=== PATIENT | male | born 1955 | race Caucasian/White ===

== ENCOUNTER 2016-03-14 19:30 | Inpatient (IN) | payer OTHER, MEDICAID ==
[2016-03-14] MEDS ORDERED: NS 1,000 ML BAG *FOR SEPSIS ORDER SET ONLY IV ONE (20:37)
--- NOTE | 2016-03-14 20:39 | UCPHY ---
H & P Patient Type: Established Chief Complaint Nursing Narrative: red rash bilateral legs x 20 hours. URI no chills/fever/Body aches. Here with Caregiver. 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 He has also had a sore throat and fever for the last week. A dry cough. He denies shortness of breath. He states that his sore throat is improving. The last 2 days he has developed a red petechial rash to both lower legs, swelling and warmth. He denies any history of cardiac or pulmonary disease. He denies any history of renal or liver disease. REVIEW OF SYSTEMS: Constitutional: See HPI EENTM: See HPI Respiratory: denies: cough, shortness of breath Cardiac: denies: chest pain, irregular heart rate, lightheadedness, palpitations Gastrointestinal/Abdominal: denies: abdominal pain, diarrhea, nausea, vomiting, blood streaked stools Genitourinary: denies: dysuria, frequency, hematuria, pain Musculoskeletal: denies: joint pain, muscle pain Skin: See HPI Neurological: denies: headache, numbness, paresthesia, tingling, dizziness, weakness Hematologic/Lymphatic: denies: blood clots, easy bleeding, easy bruising Immunologic/allergic: denies: HIV/AIDS, transplant EXAM: GENERAL: Well-appearing, well-nourished and in no acute distress. HEAD: Atraumatic, normocephalic. EYES: Pupils equal round and reactive to light, extraocular movements intact, sclera anicteric, conjunctiva are normal. ENT: TMs normal, nares patent, oropharynx clear without exudates. Moist mucous membranes. NECK: Normal range of motion, supple without lymphadenopathy or JVD. LUNGS: Breath sounds clear to auscultation bilaterally and equal. No wheezes rales or rhonchi. HEART: Regular rate and rhythm without murmurs, rubs or gallops. ABDOMEN: Soft, nontender, normoactive bowel sounds. No guarding, no rebound. No masses appreciated. BACK: No CVA tenderness, no spinal tenderness, step-offs or deformities EXTREMITIES: Bilateral lower extremity edema with petechial a vasculitis type rash, warm to the touch. NEUROLOGICAL: Cranial nerves II through XII grossly intact. Normal speech, normal gait. 5/5 strength, normal movement in all extremities, normal sensation PSYCH: Normal mood, normal affect. SKIN: Warm, dry, normal turgor, no visible rashes or lesions. Source: Patient - Personal History Current Tetanus/Diphtheria Vaccine: Unsure Current Tetanus Diphtheria and Acellular Pertussis (TDAP): Unsure - Medical/Surgical History Hx Asthma: No Hx Chronic Respiratory Disease: No Hx Diabetes: Yes Hx Cardiac Disease: No Hx Renal Disease: No Hx Cirrhosis: No Hx Alcoholism: No Hx HIV/AIDS: No Hx Splenectomy or Spleen Trauma: No Other PMH: medical- Schizoaffective Disorder, Asbergers. surgical- denies - Family History Significant Family History: No pertinent family hx - Social History Smoking Status: Never smoked Alcohol Use: None Drug Use: None Constitutional: Initial Vital Signs Temperature (C) 38.3 C 03/14/16 19:56 Heart Rate 114 H 03/14/16 19:56 Respiratory Rate 20 03/14/16 19:56 Blood Pressure 116/73 03/14/16 19:56 O2 Sat (%) 93 03/14/16 19:56 O2 Delivery Mode Room Air Allergies/Adverse Reactions: No Known Allergies Allergy (Verified 03/14/16 19:55) Home Medications: Medication Instructions Recorded Benztropine Mesylate 0.5 mg PO BID 03/14/16 Divalproex ER [Depakote ER 500 MG 1,000 mg PO HS 03/14/16 (*)] Finasteride [Proscar 5 MG (*)] 5 mg PO DAILY 03/14/16 Tamsulosin HCl [Flomax 0.4 MG (*)] 0.8 mg PO DAILY 03/14/16 lamoTRIgine [LamICTAL 100 MG (*)] 75 mg PO DAILY 03/14/16 metFORMIN HCL [Glucophage 500 mg 500 mg PO BIDMEAL 03/14/16 (*)] Chlorhexidine Gluconate 15 ml MM BID 03/15/16 Clinpro 5000 1.1% 1 mini TP BID 03/15/16 risperiDONE [Risperdal 1mg (*)] 5 mg PO HS 03/15/16 Medical Decision Making - Diagnostics Imaging: X-ray: chest x-ray was obtained. I viewed the images myself on the PACS system. My interpretation of the images is: Left lower lobe infiltrate. The radiologist interpretation is left lower lobe infiltrate and bilateral effusions. ED Course/Re-evaluation: The patient meets sepsis criteria. Will initiate lab work on fluid bolus. His legs appear to be more petechial vasculitis than the cellulitis. Although there is some edema . Suspect his throat was the primary source. It currently is relatively asymptomatic. 10:00 p.m. we discussed the x-ray results. I discussed the case with Dr. Nixon Fleming who will admit to the hospital service. We will treat for community- acquired pneumonia. The patient does meet sepsis criteria but not severe sepsis. He did receive a fluid bolus. He is not hypotensive. His heart rate did improve. I have started antibiotics. He does not require 2nd lactate. I think that the petechiae in his lower extremities are secondary to the sepsis. He is beginning to develop some petechiae in the dependent areas of his arms well. Differential Diagnosis: Partial list of the Differential diagnosis considered include but were not limited to; sepsis, vasculitis, pneumonia, urinary tract infection and although unlikely based on the history and physical exam, I also considered endocarditis, meningitis, appendicitis, cellulitis. I discussed these differential diagnoses and the plan with the patient as well as the usual and expected course. The patient understands that the diagnosis is provisional and that in medicine we are not always correct and that further workup is often warranted. Usual and customary warnings were given. All of the patient's questions were answered. The patient was instructed to return to the emergency department should the symptoms at all worsen or return, otherwise to followup with the physician as we discussed. Critical Care Time: I spent a total of 35 minutes of critical care time in obtaining history, performing a physical exam, bedside monitoring of interventions, collecting and interpreting tests and discussion with consultants but not including time spent performing procedures. - Data Points Laboratory Results: Laboratory Results 03/14/16 20:49 03/14/16 20:49 Medications Given: Discontinued Medications Acetaminophen (Tylenol) 1,000 mg PO EDNOW ONE Stop: 03/14/16 20:53 Last Admin: 03/14/16 21:04 Dose: 1,000 mg Azithromycin 500 mg/ Dextrose 255 mls @ 255 mls/hr IV DAILY ORALIA PRN Reason: Protocol Stop: 04/13/16 22:29 Last Admin: 03/14/16 22:27 Dose: 255 mls Ceftriaxone Sodium/Dextrose (Rocephin 1 Gm (Premix)) 50 mls @ 100 mls/hr IV DAILY ORALIA PRN Reason: Protocol Stop: 04/13/16 22:29 Last Admin: 03/14/16 22:10 Dose: 50 mls Ceftriaxone Sodium/Dextrose (Rocephin 1 Gm (Premix)) 50 mls @ 100 mls/hr IV DAILY ORALIA PRN Reason: Protocol Stop: 04/14/16 08:59 Last Admin: 03/15/16 07:32 Dose: 50 mls Sodium Chloride (Ns) 1,000 mls @ 150 mls/hr IV CONT ORALIA Stop: 09/10/16 22:59 Last Admin: 03/15/16 00:53 Dose: 1,000 mls Vancomycin HCl 1.5 gm/ (Dextrose) 250 mls @ 166.67 mls/hr IV Q12H ORALIA PRN Reason: Protocol Stop: 04/14/16 00:59 Last Admin: 03/15/16 13:58 Dose: 250 mls Sodium Chloride (Ns *For Sepsis Order Set Only*) 3,892 ml IV EDNOW ONE Stop: 03/14/16 20:38 Last Admin: 03/14/16 21:05 Dose: 3,892 ml Departure - Departure Disposition: [facility] Inpatient Acute Clinical Impression: Schizoaffective disorder, manic type, Vasculitis Sepsis Qualifiers: Sepsis type: sepsis due to unspecified organism Qualifier Code: (A41.9) Sepsis , unspecified organism Condition: Fair - PQRS PQRS Measurement: Not applicable
[2016-03-14] MEDS ORDERED: ACETAMINOPHEN 500 MG TAB PO ONE (20:52)
[2016-03-14 21:08] LABS: % IMMATURE GRANULYOCYTES 0.4 % (0.0-1.1); ABSOLUTE IMMATURE GRANULOCYTES 0.03 10^3/uL (0.00-0.10); ADD DIFF? NO; ADD MORPH? NO; ADD SCAN? NO; ATYPICAL LYMPHOCYTE FLAG 90 (0-99); FRAGMENT RBC FLAG 0 (0-99); HEMATOCRIT 39.9 % (40.0-51.0); HEMOGLOBIN 13.2 g/dL (13.7-17.5); LEFT SHIFT FLG 0 (0-99); LIPEMIA HEMOLYSIS FLAG 80 (0-99); MEAN CELL HEMOGLOBIN 27.9 pg (27.9-34.1); MEAN CELL HEMOGLOBIN CONCENTR. 33.1 g/dL (32.4-36.7); MEAN CELL VOLUME 84.4 fL (81.5-99.8); MEAN PLATELET VOLUME 9.9 fL (8.7-11.7); PLATELET CLUMPS FLAG 0 (0-99); PLATELET COUNT 154 10^3/uL (150-400); RED BLOOD CELL COUNT 4.73 10^6/uL (4.40-6.38); RED CELL DISTRIBUTION WIDTH 12.9 % (11.5-15.2)
[2016-03-14 21:21] LABS: ANION GAP 10 mEq/L (8-16); APTT 30.3 SEC (23.0-38.0); BILIRUBIN,TOTAL 0.8 mg/dL (0.1-1.4); CALCIUM 8.9 mg/dL (8.5-10.4); CARBON DIOXIDE 27 mEq/l (22-31); CHLORIDE 99 mEq/L (97-110); GLOMERULAR FILTRATION RATE > 60; GLUCOSE 122 mg/dL (70-100); INR 1.05 (0.83-1.16); POTASSIUM 4.2 mEq/L (3.5-5.2); PROTIME(PATIENT) 13.5 SEC (12.0-15.0); SODIUM 136 mEq/L (134-144)
--- NOTE | 2016-03-14 21:57 | DX ---
Chest, PA and Lateral March 14, 2016 HISTORY: Meets sepsis criteria. Suspected infection. Rash on lower legs. FINDINGS: The heart size is within normal limits. The pulmonary vascularity appears normal. There is a mild emphysematous configuration to the chest. Small bilateral pleural effusions. Slight incre ased lung markings are seen at both lower lobes, which could represent scarring, atelectasis, or rip y infiltrate. IMPRESSION: Small bilateral pleural effusions. Possible mild scarring, early infiltrate, or atelect asis at both lung bases.
[2016-03-14] MEDS ORDERED: cefTRIAXone 1 GM VIAL ONE (22:05)
[2016-03-14] MEDS ORDERED: NS 100 ML BAG (MINI-BAG) IV ONE (22:06)
[2016-03-14] MEDS ORDERED: AZITHROMYCIN IV 500 MG in D5W 250 ML IV SCH (22:30)
[2016-03-14] MEDS ORDERED: ALBUTEROL 60 PUFFS/8 GM MDI IH PRN (22:52)
[2016-03-14] MEDS ORDERED: ONDANSETRON 4 MG/2 ML VIAL IVP PRN (22:52)
[2016-03-14] MEDS ORDERED: ACETAMINOPHEN 325 MG TAB PO PRN (22:52)
[2016-03-14] MEDS ORDERED: ONDANSETRON DISINTEGRATING 4 MG TAB PO PRN (22:52)
[2016-03-14] MEDS ORDERED: NS 1,000 ML IV SCH (23:00)
[2016-03-15] MEDS ORDERED: guaiFENesin/CODEINE PHOS 10 ML UDCUP PO PRN (00:31)
--- NOTE | 2016-03-15 00:36 | PDGENHP ---
History and Physical - Chief Complaint Acute rash - History of Present Illness PCP: Dr. Porras HPI: 60-year-old male presenting with acute rash characterized as confluent red raised rash located on his bilateral lower extremities with associated edema mild tenderness fever sore throat and cough. Patient reports the onset of symptoms were on the day prior to presentation and duration has been persistent and worsening thereafter. The rash began on his bilateral lower extremities distally and has extended proximally and now also involves is bilateral forearms. He reports he has been taking all of his home medications as prescribed and has not recently made any medication adjustments outside of the addition of metformin several weeks ago. He denies any overt chest pain or shortness of breath. He has not had any difficulty ambulating. His bowel and bladder habits have remained normal. History Information - Allergies/Home Medication List Allergies/Adverse Reactions: No Known Allergies Allergy (Verified 03/14/16 19:55) Home Medications: Benztropine Mesylate 03/14/16 [Last Taken Unknown] Depakote ER 250 MG (*) 03/14/16 [Last Taken Unknown] Finasteride 03/14/16 [Last Taken Unknown] LaMICtal 03/14/16 [Last Taken Unknown] Metformin HCl 03/14/16 [Last Taken Unknown] Tamsulosin HCl 03/14/16 [Last Taken Unknown] I have personally reviewed and updated: family history, medical history, social history, surgical history - Past Medical History Additional medical history: Rash similar to this several years ago which resolved with antibiotics; schizoaffective disorder; peptic ulcer disease - Surgical History Reports: no pertinent surgical hx - Family History Additional family history: Mother has diabetes, no recent sick family contacts - Social History Smoking Status: Never smoked Alcohol Use: None Drug Use: None Additional social history: 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, 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 Review of Systems ROS: 10pt was reviewed & negative except for what was stated in HPI & below Constitutional: Reports: fever EENMT: Reports: sore throat Respiratory: Reports: cough Skin: Reports: rash Physical Exam Temp Pulse Resp BP Pulse Ox 37.3 C 86 18 108/72 93 03/14/16 22:00 03/14/16 22:00 03/14/16 22:00 03/14/16 22:00 03/14/16 22:00 Constitutional: no apparent distress, appears nourished, not in pain, obese Eyes: PERRL, anicteric sclera, EOMI Ears, Nose, Mouth, Throat: moist mucous membranes, hearing normal, ears appear normal, no oral mucosal ulcers Cardiovascular: regular rate and rhythym, no murmur, rub, or gallop, No edema Respiratory: reduced air movement (Bilateral bases), No expiratory wheeze, No inspiratory crackles, No bronchial breath sounds, No respiratory distress Gastrointestinal: normoactive bowel sounds, soft, non-tender abdomen, no palpable masses Genitourinary: no bladder fullness, no bladder tenderness Skin: other (Confluent rash over the bilateral lower extremities without any open ulcerations, nonblanching, extending to the knees bilaterally and present on the bilateral forearms extending slightly proximal to the elbows) Musculoskeletal: full muscle strength, no muscle tenderness, normal joint ROM, no joint effusions Neurologic: AAOx3, sensation intact bilaterally, No weakness Psychiatric: not anxious, not encephalopathic, thought process linear, flat affect Lab Data & Imaging Review 03/14/16 20:49 03/14/16 20:49 WBC 7.74 10^3/uL (3.80-9.50) 03/14/16 20:49 RBC 4.73 10^6/uL (4.40-6.38) 03/14/16 20:49 Hgb 13.2 g/dL (13.7-17.5) L 03/14/16 20:49 Hct 39.9 % (40.0-51.0) L 03/14/16 20:49 MCV 84.4 fL (81.5-99.8) 03/14/16 20:49 MCH 27.9 pg (27.9-34.1) 03/14/16 20:49 MCHC 33.1 g/dL (32.4-36.7) 03/14/16 20:49 RDW 12.9 % (11.5-15.2) 03/14/16 20:49 Plt Count 154 10^3/uL (150-400) 03/14/16 20:49 MPV 9.9 fL (8.7-11.7) 03/14/16 20:49 Neut % (Auto) 85.8 % (39.3-74.2) H 03/14/16 20:49 Lymph % (Auto) 10.9 % (15.0-45.0) L 03/14/16 20:49 Dougherty % (Auto) 2.7 % (4.5-13.0) L 03/14/16 20:49 Eos % (Auto) 0.1 % (0.6-7.6) L 03/14/16 20:49 Baso % (Auto) 0.1 % (0.3-1.7) L 03/14/16 20:49 Nucleat RBC Rel Count 0.0 % (0.0-0.2) 03/14/16 20:49 Absolute Neuts (auto) 6.64 10^3/uL (1.70-6.50) H 03/14/16 20:49 Absolute Lymphs (auto) 0.84 10^3/uL (1.00-3.00) L 03/14/16 20:49 Absolute Monos (auto) 0.21 10^3/uL (0.30-0.80) L 03/14/16 20:49 Absolute Eos (auto) 0.01 10^3/uL (0.03-0.40) L 03/14/16 20:49 Absolute Basos (auto) 0.01 10^3/uL (0.02-0.10) L 03/14/16 20:49 Absolute Nucleated RBC 0.00 10^3/uL (0-0.01) 03/14/16 20:49 Immature Gran % 0.4 % (0.0-1.1) 03/14/16 20:49 Immature Gran # 0.03 10^3/uL (0.00-0.10) 03/14/16 20:49 PT 13.5 SEC (12.0-15.0) 03/14/16 20:49 INR 1.05 (0.83-1.16) 03/14/16 20:49 APTT 30.3 SEC (23.0-38.0) 03/14/16 20:49 VBG Lactic Acid Cancelled 03/14/16 20:49 Sodium 136 mEq/L (134-144) 03/14/16 20:49 Potassium 4.2 mEq/L (3.5-5.2) 03/14/16 20:49 Chloride 99 mEq/L (97-110) 03/14/16 20:49 Carbon Dioxide 27 mEq/l (22-31) 03/14/16 20:49 Anion Gap 10 mEq/L (8-16) 03/14/16 20:49 BUN 20 mg/dL (7-23) 03/14/16 20:49 Creatinine 1.0 mg/dL (0.7-1.3) 03/14/16 20:49 Estimated GFR > 60 03/14/16 20:49 Glucose 122 mg/dL (70-100) H 03/14/16 20:49 Calcium 8.9 mg/dL (8.5-10.4) 03/14/16 20:49 Total Bilirubin 0.8 mg/dL (0.1-1.4) 03/14/16 20:49 Influenza Typ A,B (DFA) NEGATIVE FOR FLU (NEGATIVE) 03/14/16 20:45 Influenza A & B (PCR) Cancelled 03/14/16 20:50 Group A Strep Screen NEGATIVE (NEGATIVE) 03/14/16 20:45 Visualized and Interpreted Chest x-ray results: Yes Chest X-Ray results: other (Possible infiltrates in the bilateral bases with very small effusions) Assessment & Plan Assessment: 60-year-old male presenting with suspected sepsis, possible pneumonia, rash Plan: 1. Suspected sepsis. Acute, new problem this provider, further workup indicated. Evidenced by tachycardia and fever as well as left shift on CBC with identifiable source of infection notably pneumonia, resulting in autonomic dysregulation in the setting of infection. -continue high rate IV fluids -get blood cultures -get CT angiogram to confirm pneumonia and rule out pulmonary embolism -brought in IV antibiotic therapy given that concomitant cellulitis is a possibility 2. Possible pneumonia. Acute, new problem this provider, further workup indicated. Evidenced by bibasilar infiltrates on chest x-ray as well as sepsis physiology outlined above and symptomatic cough -send sputum culture once available -blood culture sent -chest imaging as outlined above the to confirm diagnosis -discussed with Dr. Fleming, she has reported to me that the patient has received antibiotics at urgent care, notably IV ceftriaxone and azithromycin, continue -guaifenesin/codeine symptomatically 3. Rash. Acute, new problem this provider, further workup indicated. Vasculitic versus DRESS versus cellulitic -given the high possibility that this could be DRESS, we will hold his Depakote and Risperdal -send inflammatory markers including ESR, CRP, CPK, CHELLY, Anca, DIC panel, HIV ( consent obtained) -hold on steroids at this time until inflammatory markers have been sent and we have obtained liver panel -may require dermatology consultation in a.m. if condition worsens and diagnosis of remains uncertain -provide empiric IV vancomycin given the potential that this may have been initiated by lower extremity cellulitis 4. Schizoaffective disorder. Chronic, reviewed outside records including 2013 consultation by Radha Germain, reporting the patient was placed on inpatient Behavioral Health for behavioral changes in the setting of environmental changes -will hold on steroids at this time until rheumatologic evaluation has been initiated and we determine whether patient requires dermatologic skin biopsy -will hold on Risperdal, Cogentin, Depakote until we have obtained the above information Diet. Regular Prophylaxis. High risk patient, Lovenox 40 Code. 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 Anticipated discharge is uncertain this time, anticipated length stay is greater than 48 hours warranting inpatient admission status for suspected acute sepsis as well as acute rash raising concerns of vasculitic or severe drug reaction warranting aggressive workup and treatment. The patient should be considered inpatient admission status from the time of his presentation, his initial observation order by this physician was entered in error and should have been an inpatient admission order.
[2016-03-15] MEDS: VANCOMYCIN 1.5 GM in D5W 250 ML IV SCH ×2 (00:53→13:58)
[2016-03-15 01:20] LABS: COLOR YELLOW; LEUKOCYTE ESTERASE,URINE NEGATIVE (NEGATIVE); NITRITE,URINE NEGATIVE (NEGATIVE)
[2016-03-15 06:00] LABS: PLATELET COUNT 132 10^3/uL (150-400)
[2016-03-15 06:02] LABS: % IMMATURE GRANULYOCYTES 0.4 % (0.0-1.1); ABSOLUTE IMMATURE GRANULOCYTES 0.02 10^3/uL (0.00-0.10); ADD DIFF? NO; ADD MORPH? NO; ADD SCAN? NO; ATYPICAL LYMPHOCYTE FLAG 80 (0-99); FRAGMENT RBC FLAG 0 (0-99); HEMATOCRIT 33.4 % (40.0-51.0); HEMOGLOBIN 11.3 g/dL (13.7-17.5); LEFT SHIFT FLG 0 (0-99); LIPEMIA HEMOLYSIS FLAG 90 (0-99); MEAN CELL HEMOGLOBIN 28.8 pg (27.9-34.1); MEAN CELL HEMOGLOBIN CONCENTR. 33.8 g/dL (32.4-36.7); MEAN PLATELET VOLUME 9.7 fL (8.7-11.7); PLATELET CLUMPS FLAG 10 (0-99); PLATELET COUNT 117 10^3/uL (150-400); RED BLOOD CELL COUNT 3.93 10^6/uL (4.40-6.38); RED CELL DISTRIBUTION WIDTH 12.9 % (11.5-15.2)
[2016-03-15 06:15] LABS: ALANINE AMINOTRANSFERASE 26 IU/L (21-72); ALBUMIN 2.3 g/dL (3.5-5.0); ALKALINE PHOSPHATASE 30 IU/L (38-126); ANION GAP 8 mEq/L (8-16); ASPARTATE AMINOTRANSFERASE 14 IU/L (17-59); BILIRUBIN,TOTAL 0.6 mg/dL (0.1-1.4); BILIRUBIN-CONJUGATED 0.1 mg/dL (0.0-0.5); BILIRUBIN-UNCONJUGATED 0.5 mg/dL (0.0-1.1); C-REACTIVE PROTEIN 77.2 mg/L (<10.0); CALCIUM 7.7 mg/dL (8.5-10.4); CARBON DIOXIDE 26 mEq/l (22-31); CHLORIDE 108 mEq/L (97-110); CREATININE 0.9 mg/dL (0.7-1.3); GLOMERULAR FILTRATION RATE > 60; GLUCOSE 84 mg/dL (70-100); POTASSIUM 4.1 mEq/L (3.5-5.2); SODIUM 142 mEq/L (134-144); TOTAL PROTEIN 4.6 g/dL (6.3-8.2)
[2016-03-15 06:16] LABS: INR 1.28 (0.83-1.16)
[2016-03-15 06:17] LABS: FIBRINOGEN 346 mg/dL (214-456)
[2016-03-15 07:03] LABS: SEDIMENTATION RATE 10 MM/HR (0-20)
[2016-03-15] MEDS: IBUPROFEN 200 MG TAB PO PRN ×2 (07:31→13:03)
[2016-03-15] MEDS: ENOXAPARIN 40 MG/0.4 ML SYR SC SCH (08:01)
[2016-03-15] MEDS: AZITHROMYCIN IV 500 MG in D5W 250 ML IV SCH (10:03)
[2016-03-15] MEDS ORDERED: IOPAMIDOL (ISOVUE 370) 100 ML BTL IV ONE (10:46)
--- NOTE | 2016-03-15 11:31 | CT ---
CT Pulmonary Angiogram 1111 hours Clinical Indications: Shortness of breath. Elevated d-dimer. Evaluate for pulmonary embolus or pneumo jim Technique: Thinly collimated multidetector helical CT imaging was performed through the chest while 90 mL Isovue-370 were injected intravenously without complication. The images were reconstructed in multiple planes. Dose reduction techniques were utilized. Findings: CT Angiogram: There is no evidence of intraluminal thrombus within the pulmonary arterial system. Th e thoracic aorta has a normal contour without evidence of aneurysm or dissection. There is no perica rdial effusion. The cardiac chambers are normal in appearance. CT Chest: There are small bilateral pleural effusions with adjacent compressive atelectatic change at the lung bases posteriorly. There is incidental 4 mm calcified granuloma right lower lobe posterior laterally in left lower lobe posterior medially. There are a few additional scattered 2 mm calcified granulomas elsewhere. There are no significant pulmonary nodules. Soft tissues are unremarkable. Th e visualized upper abdominal structures are unremarkable during arterial phase of imaging. Skeletal system: Vertebral body heights are well-maintained. There are no lytic or sclerotic osseous lesions. Impression: 1. No evidence of pulmonary embolus using CT protocol. 2. Small bilateral pleural effusions with adjacent compressive atelectatic change at the lung bases.
[2016-03-15] MEDS: BENZTROPINE MESYLATE 1 MG TAB PO SCH ×2 (12:54→20:03)
[2016-03-15] MEDS: TAMSULOSIN HCL 0.4 MG CAP PO SCH (12:54)
[2016-03-15 14:23] LABS: ANTINUCLEAR ANTIBODIES SCREEN 0.13 UNITS (<1.00)
[2016-03-15] MEDS: CHLORHEXIDINE GLUCONATE 15 ML UDL MM SCH ×2 (15:09→20:08)
--- NOTE | 2016-03-15 18:17 | HOSPPROG ---
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 Culture negative now, but elevated ASo titers show recent infection -no oral ulcers to suggest Trace's Johnsons -I had very helpful conversation with Laser Beam Trim Operator, Dr. Olsen. DRESS sydrome would be a diffuse rash, with fever -CHELLY, HIV negative. Hep B/C pending -patient does not have organ involvement including GI or kidneys, thus no indication for systemic steroids -can follow up with [facility] derm outpatient. Consider shave biopsy for immunofluoresence at [facility] (place in saline, not formaldehyde) #Schizoaffective d/o: will restart meds since not likely DRESS and has not have changed in several years #Fever -at admission -CT negative for PNA. UA negative -blood cultures pending -stop abx and monitor #Diet: regular #BPH: Flomax #DVT px: Lovenox #Disp: if afebrile tomorrow will likely DC Objective: Vital Signs Temp Pulse Resp BP Pulse Ox 36.3 C 70 16 151/85 H 94 03/15/16 15:22 03/15/16 15:22 03/15/16 15:22 03/15/16 15:22 03/15/16 15:22 Laboratory Results 03/15/16 05:40 03/15/16 05:40 03/14/16 03/15/16 03/16/16 05:59 05:59 05:59 Intake Total 5442 2463 Output Total 800 325 Balance 4642 2138 PT 16.0 SEC (12.0-15.0) H 03/15/16 05:40 INR 1.28 (0.83-1.16) H 03/15/16 05:40 - Physical Exam Ears, Nose, Mouth, Throat: no oral mucosal ulcers Cardiovascular: regular rate and rhythym Respiratory: no respiratory distress Gastrointestinal: normoactive bowel sounds, soft, non-tender abdomen Skin: other (nonblanchable purpura over ant/straightener legs to knees and mildly over forearms) Musculoskeletal: other (no joint synovitis, TTP. ) Neurologic: AAOx3 ICD10 Worksheet Patient Problems: Problems Problem Status Diagnosed Schizoaffective disorder, manic type Acute Sepsis Acute Vasculitis Acute
[2016-03-15] MEDS: lamoTRIgine 25 MG TAB PO SCH (19:04)
[2016-03-15] MEDS: [UNRECOGNIZED DRUG - OTHER] TP SCH (20:08)
[2016-03-15] MEDS ORDERED: risperiDONE 1 MG TAB PO SCH (21:00)
[2016-03-15] MEDS ORDERED: DIVALPROEX ER 500 MG TAB PO SCH (21:00)
[2016-03-15] MEDS ORDERED: [UNRECOGNIZED DRUG - OTHER] TP SCH (21:00)
[2016-03-16 05:17] LABS: HEMATOCRIT 37.5 % (40.0-51.0); HEMOGLOBIN 12.2 g/dL (13.7-17.5); MEAN CELL HEMOGLOBIN 27.4 pg (27.9-34.1); MEAN CELL HEMOGLOBIN CONCENTR. 32.5 g/dL (32.4-36.7); MEAN CELL VOLUME 84.1 fL (81.5-99.8); RED BLOOD CELL COUNT 4.46 10^6/uL (4.40-6.38)
[2016-03-16 05:24] LABS: ANION GAP 7 mEq/L (8-16); CARBON DIOXIDE 27 mEq/l (22-31); CHLORIDE 109 mEq/L (97-110); CREATININE 0.8 mg/dL (0.7-1.3); GLOMERULAR FILTRATION RATE > 60; GLUCOSE 92 mg/dL (70-100); POTASSIUM 4.5 mEq/L (3.5-5.2); SODIUM 143 mEq/L (134-144)
[2016-03-16 07:19] VITALS: PULSE 89; RESP 16; TEMP 98.5; O2SAT 91
--- NOTE | 2016-03-16 08:23 | HOSPPROG ---
[id number]. Culture negative now, but elevated ASo titers show recent infection -no oral ulcers to suggest Trace's Johnsons -I had very helpful conversation with Tool Room Attendant, Dr. Olsen. DRESS sydrome would be a diffuse rash, with fever -CHELLY, HIV negative. Hep B/C pending -patient does not have organ involvement including GI or kidneys, thus no indication for systemic steroids -can follow up with [facility] derm outpatient. Consider shave biopsy for immunofluoresence at [facility] (place in saline, not formaldehyde) #Schizoaffective d/o: will restart meds since not likely DRESS and has not have changed in several years #Fever -at admission -CT negative for PNA. UA negative -blood cultures pending -stop abx and monitor #Diet: regular #BPH: Flomax #DVT px: Lovenox #Disp: DC today Subjective: no abdominal or joint pain. Less swelling of legs Objective: Vital Signs Temp Pulse Resp BP Pulse Ox 36.9 C 89 16 157/106 H 91 L 03/16/16 07:04 03/16/16 07:04 03/16/16 07:04 03/16/16 07:04 03/16/16 07:04 Laboratory Results 03/16/16 03:43 03/16/16 03:43 03/15/16 03/16/16 03/17/16 05:59 05:59 05:59 Intake Total 5442 2763 Output Total 800 325 Balance 4642 2438 PT 16.0 SEC (12.0-15.0) H 03/15/16 05:40 INR 1.28 (0.83-1.16) H 03/15/16 05:40 - Physical Exam Constitutional: no apparent distress Eyes: PERRL Ears, Nose, Mouth, Throat: moist mucous membranes, no oral mucosal ulcers Cardiovascular: regular rate and rhythym, no murmur, rub, or gallop Respiratory: no respiratory distress, no rales or rhonchi Gastrointestinal: normoactive bowel sounds, soft, non-tender abdomen Genitourinary: no bladder fullness Skin: warm, other (nonblanchable purpura over LE, violaceous color. Mild purpura UEs. No joint swelling, TTP) Musculoskeletal: full muscle strength Neurologic: AAOx3 Psychiatric: interacting appropriately ICD10 Worksheet Patient Problems: Problems Problem Status Diagnosed Schizoaffective disorder, manic type Acute Sepsis Acute Vasculitis Acute
[2016-03-16] MEDS: lamoTRIgine 25 MG TAB PO SCH (08:27)
[2016-03-16] MEDS: TAMSULOSIN HCL 0.4 MG CAP PO SCH (08:28)
[2016-03-16] MEDS: BENZTROPINE MESYLATE 1 MG TAB PO SCH (08:28)
[2016-03-16] MEDS: ENOXAPARIN 40 MG/0.4 ML SYR SC SCH (08:29)
[2016-03-16] MEDS: [UNRECOGNIZED DRUG - OTHER] TP SCH (08:54)
[2016-03-16] MEDS: CHLORHEXIDINE GLUCONATE 15 ML UDL MM SCH (08:54)
[2016-03-16] MEDS ORDERED: FINASTERIDE 5 MG TAB PO SCH (09:00)
[2016-03-16] MEDS: AZITHROMYCIN IV 500 MG in D5W 250 ML IV SCH (09:45)
[2016-03-16 09:53] VITALS: BP 159/90
--- NOTE | 2016-03-16 15:48 | GDS ---
[f rep st] DISCHARGE SUMMARY DISCHARGE DIAGNOSES: 1. 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 2. Recent upper respiratory infection versus strep throat. 3. Schizoaffective disorder. 4. Fever. 5. BPH. HPI: Patient is a 60-year-old male with history of schizoaffective disorder, who presented to urgent care with an acute rash, characterized as complete raised rash on bilateral lower extremities with associated edema over the last couple days. He reports having a URI infection along with a sore throat 2 weeks ago. The rash also was on his forearms. He has been taking all of his medications as scheduled and has not changed any of his psych meds recently. He denies chest pain, shortness of breath. The legs are not painful or itchy. Denies abdominal pain. Denies mouth ulcers. HOSPITAL COURSE BY PROBLEM: 1. 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 He endorses recent sore throat and upper respiratory symptoms. Strep was negative here. On exam, he had nonblanching purpura significantly on the lower extremities and mild on arms. He denies pain, itching. No mouth ulcers. No abdominal pain. Negative studies included hep B/C, HIV, strep culture, and influenza. He did have a mildly elevated ASO titer, which is suggestive of a possible recent strep infection which could be the etiology of this rash. He denies any joint pain. An CHELLY, proteinase, and NPA were all negative as well. I did speak with Dr. Olsen at [facility]. Given the fact that patient does not have organ involvement or pain, we would not treat with or systemic steroids. He is not itching. This does not warrant topical treatment either. I advised him to follow up with [facility] because they could do possible skin biopsy for immunofluorescence. Initially, had considered dress syndrome given antipsychotics however, would expect this to be more diffuse in nature with significant fevers and joint involvement. 2. Schizoaffective disorder: May resume his home antipsychotics. 3. Prediabetes: Continue metformin. DISPOSITION: Patient is stable for discharge home with caregiver. I discussed followup plans with his father. MEDICATIONS: No new medications. FOLLOWUP: [facility]. RETURN PRECAUTIONS: Return to hospital if rash progresses, has abdominal pain, mouth ulcers, or significant fevers. /[id number]/MODL MTDD
== END 2016-03-16 11:26 | disposition home or self-care (01) | DRG 547 ==
LOC: CED 19:30 → CEDHOLD 22:04 → OBSVTOIN 22:52 → F2W 23:48
PROVIDERS: ADMIT Internal Medicine; ATTEND Internal Medicine
DX: I77.6 Arteritis, unspecified (principal); F25.9 Schizoaffective disorder, unspecified; R73.03 Prediabetes; N40.0 Benign prostatic hyperplasia without lower urinary tract symptoms; R50.9 Fever, unspecified; Z87.11 Personal history of peptic ulcer disease
CPT/HCPCS: 71020-PO; 80048-PO; 82247-PO; 83516-90; 83520-90; 83605-PO; 85025-PO; 85610-PO; 85730-PO; 86707-90; 87350-90; 87400-PO; 87880-PO; 96361-PO; 96365-PO; 96368-PO; 97165-GO; G0463-PO; G0472; G8987-GO-CI; G8988-GO-CI; J0456; J0696; J1650; J3370; Q9967